=== PATIENT | female | born 1955 | race Caucasian/White ===

== ENCOUNTER 2019-01-15 14:48 | Emergency (ER) | payer MEDICARE, OTHER ==
[~2019-01-15] VITALS: Ht 162.6 cm; Wt 81.6 kg
[2019-01-15 14:51] VITALS: BP 152/86
[2019-01-15] MEDS ORDERED: IPRATROPIUM NEB FS 0.5 MG/2.5 ML AMPUL.NEB ONE (15:17)
[2019-01-15] MEDS ORDERED: ALBUTEROL FS 2.5 MG/3 ML VIAL.NEB ONE (15:17)
[2019-01-15] MEDS: ALBUTEROL FS 2.5 MG/3 ML VIAL.NEB NEB ONE (15:27)
[2019-01-15] MEDS: IPRATROPIUM NEB FS 0.5 MG/2.5 ML AMPUL.NEB NEB ONE (15:27)
[2019-01-15] MEDS ORDERED: LIDOCAINE 1%-EPI 1:100,000 20 ML VIAL ONE (15:51)
[2019-01-15] MEDS ORDERED: TDAP [DIPH/PERTUSSIS/TET] 0.5 ML VIAL IM ONE (15:56)
[2019-01-15] MEDS ORDERED: ACETAMINOPHEN ES 500 MG TABLET ONE (15:56)
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
[2019-01-15] MEDS: ACETAMINOPHEN 325 MG TABLET PO ONE (16:06)
[2019-01-15] MEDS: LIDOCAINE 1%-EPI 1:100,000 20 ML VIAL TP ONE (16:07)
[2019-01-15] MEDS: TDAP [DIPH/PERTUSSIS/TET] 0.5 ML VIAL IM ONE (16:07)
--- NOTE | 2019-01-15 16:57 | NUR ---
LAC REPAIR DONE. PT D/C IN STABLE CONDITION. HOMELESS WAIVER SIGNED.
== END 2019-01-15 16:58 | disposition home or self-care (01) ==
LOC: ER 14:51
DX: S01.412A Laceration without foreign body of left cheek and temporomandibular area, initial encounter (principal); J44.1 Chronic obstructive pulmonary disease with (acute) exacerbation; F17.200 Nicotine dependence, unspecified, uncomplicated; Z23 Encounter for immunization; Z59.0 Homelessness; Z76.0 Encounter for issue of repeat prescription; Y08.89XA Assault by other specified means, initial encounter; Y93.89 Activity, other specified; Y92.89 Other specified places as the place of occurrence of the external cause; Y99.8 Other external cause status
CPT/HCPCS: 12011; 90471; 90715; 94640; 99283; 99406; J3490

== ENCOUNTER → 2019-01-22 | Emergency (ER) | payer MEDICARE, OTHER ==
--- NOTE | 2019-01-22 23:46 | NUR ---
CALLED PATIENT IN WAITING ROOM. NO RESPONSE.
--- NOTE | 2019-01-23 00:11 | NUR ---
CALLED PATIENT IN WAITING ROOM. NO RESPONSE.
--- NOTE | 2019-01-23 01:09 | NUR ---
CALLED PATIENT IN WAITING ROOM. NO RESPONSE.
== END | disposition left against medical advice (07) ==
LOC: ER 23:19
DX: Z53.21 Procedure and treatment not carried out due to patient leaving prior to being seen by health care provider (principal)

== ENCOUNTER 2019-01-31 13:41 | Emergency (ER) | payer MEDICARE, OTHER ==
[~2019-01-31] VITALS: Ht 157.5 cm; Wt 99.8 kg
[2019-01-31] MEDS ORDERED: ACETAMINOPHEN ES 500 MG TABLET PO ONE (15:00)
[2019-01-31] MEDS ORDERED: ALBUTEROL FS 2.5 MG/3 ML VIAL.NEB NEB ONE (15:00)
[2019-01-31] MEDS ORDERED: IPRATROPIUM NEB FS 0.5 MG/2.5 ML AMPUL.NEB NEB ONE (15:00)
[2019-01-31] MEDS ORDERED: IBUPROFEN 600 MG TABLET PO ONE ×2 (15:00→15:57)
[2019-01-31] MEDS ORDERED: ALBUTEROL FS 2.5 MG/3 ML VIAL.NEB ONE (15:05)
[2019-01-31] MEDS ORDERED: IPRATROPIUM NEB FS 0.5 MG/2.5 ML AMPUL.NEB ONE (15:06)
[2019-01-31] MEDS ORDERED: ACETAMINOPHEN ES 500 MG TABLET ONE (15:57)
[2019-01-31 16:53] VITALS: BP 145/68
== END 2019-01-31 18:52 | disposition home or self-care (01) ==
LOC: ER 13:42
DX: J06.9 Acute upper respiratory infection, unspecified (principal); J40 Bronchitis, not specified as acute or chronic; F17.200 Nicotine dependence, unspecified, uncomplicated
CPT/HCPCS: 71045-TC

== ENCOUNTER 2019-02-08 18:26 | Emergency (ER) | payer MEDICARE ==
[~2019-02-08] VITALS: Ht 157.5 cm; Wt 99.8 kg
[2019-02-08] MEDS ORDERED: ACETAMINOPHEN ES 500 MG TABLET PO ONE (19:30)
[2019-02-08] MEDS ORDERED: KETOROLAC TROMETHAMINE INJ 60 MG/2 ML VIAL IM ONE ×2 (19:30→19:41)
[2019-02-08 19:31] LABS: BASOPHILS # (AUTO) 0.1 /CMM (0.0-0.2); BASOPHILS % (AUTO) 1.2 % (0.0-2.0); EOSINOPHILS % (AUTO) 2.7 % (0.0-6.0); HEMATOCRIT 40 % (33-45); HEMOGLOBIN 13.4 g/dL (11.5-14.8); LYMPHOCYTES # (AUTO) 1.9 /CMM (0.8-4.8); LYMPHOCYTES % (AUTO) 22.7 % (20.0-44.0); MEAN CORPUSCULAR HGB CONC 34 g/dl (31.0-36.0); MEAN CORPUSCULAR VOLUME 97 fL (82-100); MONOCYTES # (AUTO) 0.5 /CMM (0.1-1.30); MONOCYTES % (AUTO) 6.7 % (2.0-12.0); NEUTROPHILS # (AUTO) 5.4 /CMM (1.8-8.9); NEUTROPHILS % (AUTO) 66.7 % (43.0-81.0); PLATELET COUNT (AUTO) 365 /CMM (150-450); RED BLOOD CELL COUNT(AUTO) 4.08 MIL/uL (4.0-5.2); WHITE BLOOD COUNT (AUTO) 8.2 K/uL (4.3-11.0)
[2019-02-08] MEDS ORDERED: ACETAMINOPHEN ES 500 MG TABLET ONE (19:42)
[2019-02-08 19:47] LABS: ALBUMIN 3.3 g/dL (3.4-5.0); BILIRUBIN,TOTAL 0.3 mg/dL (0.2-1.0); CREATININE 0.8 mg/dL (0.6-1.3); POTASSIUM 4.4 mmol/L (3.5-5.1); TOTAL PROTEIN, SERUM 6.8 g/dL (6.4-8.2)
--- NOTE | 2019-02-08 19:50 | NUR ---
BIB SELF C/O GEN BODY PAIN AND WEAKNESS FOR 2 DAYS. PT AAOX4, VSS. DENIES CP, SOB, DIZZINESS, N/V @ THIS TIME. PT SEEN & EVAL'D BY DR. SANCHEZ. MEDICATED ORDERED, PT [facility]AKHWINDER WELL. WILL CONT TO MONITOR.
--- NOTE | 2019-02-08 21:25 | NUR ---
Patient discharged to home in stable condition. Written and verbal after care instructions given. Patient verbalizes understanding of instruction. PT REFUSED TO SIGN [facility] INSTRUCTIONS.
[2019-02-08 21:26] VITALS: BP 142/87
== END 2019-02-08 21:27 | disposition home or self-care (01) ==
LOC: ER 18:27
DX: M79.18 Myalgia, other site (principal); R51 Headache; R53.1 Weakness; J44.9 Chronic obstructive pulmonary disease, unspecified; F10.10 Alcohol abuse, uncomplicated; F17.200 Nicotine dependence, unspecified, uncomplicated; Y90.9 Presence of alcohol in blood, level not specified; Z59.0 Homelessness
CPT/HCPCS: 36415; 70450; 80048; 80076; 85025; 96372; 99284; J1885